=== PATIENT | male | born 1995 | race Caucasian/White ===

== ENCOUNTER 2018-12-29 12:13 | Outpatient (CLI) | payer OTHER ==
[2018-12-29] MEDS ORDERED: Gadobenate Dimeglumine 529 MG/1 ML (20ML VIAL) ONE (13:48)
--- NOTE | 2018-12-29 14:54 | RAD ---
Left shoulder arthrogram INDICATION: Left shoulder pain and history of dislocation. TECHNIQUE: Informed consent was obtained. Preprocedure scouts images were performed for guidance purpo ses only. Site overlying the left glenohumeral joint was cleansed in the usual sterile technique. 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 Under fluoroscopic guidance, a 22-gauge spinal needle was guided down into the glenohumeral joint. I personally injected the left glenohumeral joint with a dilute gadolinium solution. Patient tolerated the injection without di fficulty. The total fluoroscopic time was 0.3 minutes. Total exposure was 14.5 uGy*m2. FINDINGS: There is post stenotic change involving the humeral head consistent with a Hill-Sachs defor mity. AC joint is normal-appearing. No osseous Bankart lesion is grossly evident. Visualized left lung is clear. IMPRESSION: Successful left shoulder arthrogram Transcribed Date/Time: 12/29/2018 3:06 PM
--- NOTE | 2018-12-29 15:00 | MRI ---
MR arthrogram of the left shoulder INDICATION: Left shoulder dislocation COMPARISON: Left shoulder arthrogram radiograph dated December 29, 2018 FINDINGS: There is a Hill-Sachs impaction fracture of the posterior superior humeral head. The patien t could not tolerate ABER positioning therefore ABER images were not obtained. There is some stripping of the anterior periosteum from the anterior inferior aspect of the glenoid neck with nonv isualization of normal-appearing anterior inferior glenohumeral labrum on image 6 of series 3 suspicious for a Perthes type Bankart variant. No full-thickness glenoid articular abnormality is rama dent. There is edema involving the inferior joint capsule within the axillary pouch. Biceps anchor complex and biceps tendon is intact. The rotator cuff is intact. AC joint is normal-appearing. No mus cular atrophy is evident. IMPRESSION: 1. Impacted Hill-Sachs deformity of the humeral head. 2. Displacement of a fully torn anterior inferior glenohumeral labral labrum with associated strippin g of the anterior inferior glenohumeral labral periosteal is suspicious for Perthes type lesion.. Transcribed Date/Time: 12/29/2018 3:03 PM
== END 2018-12-29 12:14 | disposition home or self-care (01) ==
LOC: RAD 12:13
PROVIDERS: ATTEND Pediatrics Sports Medicine
DX: S43.005A Unspecified dislocation of left shoulder joint, initial encounter (principal)
CPT/HCPCS: 23350; A9577

== ENCOUNTER 2020-11-29 07:26 | Outpatient (CLI) | payer BC ==
[2020-11-29] MEDS ORDERED: Magnevist 469MG/ML 20 ML VIAL ONE (10:29)
== END 2020-11-29 07:27 | disposition home or self-care (01) ==
LOC: BICMRI 07:26
PROVIDERS: ATTEND Family Medicine
DX: R56.9 Unspecified convulsions (principal); R55 Syncope and collapse
CPT/HCPCS: 70553; A9579

== ENCOUNTER 2020-12-07 12:35 | Outpatient (CLI) | payer BC | END 2020-12-07 12:36 | disposition home or self-care (01) | LOC: EEG 12:35 | PROVIDERS: ATTEND Nurse Practitioner Acute Care | DX: R56.9 Unspecified convulsions (principal) | CPT/HCPCS: 95816 ==

== ENCOUNTER 2020-12-09 08:11 | Emergency (ER) | payer BC ==
[2020-12-09] MEDS ORDERED: PROPOFOL 0 ML ONE (08:25)
[2020-12-09] MEDS ORDERED: levETIRAcetam 500 MG/100 ML PREMIX BAG ONE (08:25)
[2020-12-09] MEDS ORDERED: Lorazepam 2 MG/ML VIAL ONE (08:25)
[2020-12-09] MEDS ORDERED: PROPOFOL 20 ML ONE (08:48)
[2020-12-09 08:56] LABS: #Basophils 0.1 thou/uL (0.0-0.2); #Eosinphils 0.2 thou/uL (0.0-0.7); #Lymphocytes 5.5 thou/uL (1.20-3.40); #Monocytes 0.8 thou/uL (0.11-0.59); #Neutrophils 5.8 thou/uL (1.40-6.50); %Basophils 0.4 % (0.0-1.0); %Eosinophils 1.7 % (0.0-10.0); %Lymphocytes 44.7 % (21.0-51.0); %Monocytes 6.1 % (0.0-10.0); %Neutrophils 47.1 % (42.0-75.0); Hemoglobin 16.4 g/dL (14.0-18.0); Mean Corpuscular HGB CONC 32.5 g/dL (32.0-36.0); Mean Corpuscular Hemoglobin 29.4 pg (27.0-31.0); Mean Corpuscular Volume 90.4 fL (78.0-98.0); Platelet Count 228 thou/uL (130-400); Red Blood Cell (RBC) Count 5.56 mill/uL (4.70-6.10); White Blood Cell (WBC) Count 12.4 thou/uL (4.8-10.8)
[2020-12-09 09:24] LABS: ALT (SGPT) 27 U/L (8-55); AST (SGOT) 21 U/L (5-34); Albumin 4.8 g/dL (3.5-5.0); Alkaline Phosphatase 108 U/L (40-110); Anion Gap 28 mmol/L (10-20); BUN (Urea Nitrogen) 18 mg/dL (8.9-20.6); Bilirubin, Total 1.4 mg/dL (0.2-1.2); Calc. Creatinine Clearance 0 mL/min (70-130); Calcium 9.5 mg/dL (7.8-10.44); Carbon Dioxide 12 mmol/L (22-29); Chloride 106 mmol/L (98-107); Globulin 2.9 g/dL (2.4-3.5); Glucose 132 mg/dL (70-105); Potassium 3.7 mmol/L (3.5-5.1); Protein, Total 7.7 g/dL (6.0-8.3); Sodium 142 mmol/L (136-145)
== END 2020-12-09 10:10 | disposition home or self-care (01) ==
LOC: ERS 08:11
DX: G40.909 Epilepsy, unspecified, not intractable, without status epilepticus (principal); S43.004A Unspecified dislocation of right shoulder joint, initial encounter; Z79.899 Other long term (current) drug therapy; X58.XXXA Exposure to other specified factors, initial encounter
CPT/HCPCS: 23650; 36415; 80053; 80177; 85025; 96365; 96375; J1953; J2060; J2704